=== PATIENT | male | born 1985 | race Caucasian/White ===

== ENCOUNTER 2017-06-09 11:48 | Inpatient (IN) | payer OTHER ==
[2017-06-09] MEDS ORDERED: Lidocaine 1% 20 ML MDV INJECT ONE (14:37)
[2017-06-09] MEDS ORDERED: Morphine 4 MG/ML Syringe IVPUSH ONE (14:49)
[2017-06-09 14:53] LABS: CHLORIDE,CL 103 mmol/L (98-107); SODIUM,NA 140 mmol/L (136-148)
--- NOTE | 2017-06-09 15:30 | EDM.PDOC ---
ED HPI GENERAL MEDICAL PROBLEM - General Chief Complaint: Skin Complaint Stated Complaint: PER PT, HE HAS A GROWTH ON HIS INNER TIGHT Time Seen by Provider: 06/09/17 15:26 Source of Information: Reports: Patient - History of Present Illness INITIAL COMMENTS - FREE TEXT/NARRATIVE: HISTORY AND PHYSICAL: History of present illness: [Patient is an obese male who presents with cellulitis and indurated region on his left inguinal area appearing to arise from an ingrown hair, he has MRSA history and frequent abscess formation he generally drains on his own at home He is had some intermittent chills and sweats however at current no fever nausea vomiting chills sweats no chest pain shortness breath headache dizziness palpitation no bowel or urine symptoms He has a large 30 cm cellulitis on his left inner thigh antibiotics depending up the inguinal fold and anterior thigh 30 cm x 20 cm There is an area of induration with some fluctuance to it proximally 10 cm x 6 cm, this had drained on its own 2 days prior, I did open the lesion where it had drained and approximately a tablespoon of loculated and cottage cheese type material did come from the lesion a wound culture was obtained. I did cleanse and explored the wound I did not find any further areas of loculated ablation or liquid exudates ] Review of systems: As per history of present illness and below otherwise all systems reviewed and negative. Past medical history: As per history of present illness and as reviewed below otherwise noncontributory. Surgical history: As per history of present illness and as reviewed below otherwise noncontributory. Social history: No reported history of drug or alcohol abuse. Family history: As per history of present illness and as reviewed below otherwise noncontributory. Physical exam: HEENT: Atraumatic, normocephalic, pupils reactive, negative for conjunctival pallor or scleral icterus, mucous membranes moist, throat clear, neck supple, nontender, trachea midline. Lungs: Clear to auscultation, breath sounds equal bilaterally, chest nontender. Heart: S1S2, regular, negative for clicks, rubs, or JVD. Abdomen: Soft, nondistended, nontender. Negative for masses or hepatosplenomegaly. Negative for costovertebral tenderness. Pelvis: Stable nontender. Genitourinary: Deferred. Rectal: Deferred. Extremities: Atraumatic, negative for cords or calf pain. Neurovascular unremarkable. Neuro: Awake, alert, oriented. Cranial nerves II through XII unremarkable. Cerebellum unremarkable. Motor and sensory unremarkable throughout. Exam nonfocal. Skin as per history of present illness otherwise unremarkable Diagnostics: [Wound culture obtained CBC CMP UA blood cultures 2 ] Therapeutics: [IND performed as above Lidocaine 5 mL Vancomycin 1 g IV Cleocin 300 mg IV Morphine 2 mg IV ] Impression: [ abscess post I&D Cellulitis MRSA history ] Definitive disposition and diagnosis as appropriate pending reevaluation and review of above. abcess to L thigh Pain Score (Numeric/FACES): 0 - Related Data Allergies Allergy/AdvReac Type Severity Reaction Status Date / Time No Known Allergies Allergy Verified 06/09/17 12:26 Home Meds: Home Meds . [No Known Home Meds] 06/09/17 [History] Past Medical History Dermatologic History: Reports: Other (See Below) Other Dermatologic History: Acne - Infectious Disease History Infectious Disease History: Reports: Chicken Pox - Past Surgical History Musculoskeletal Surgical History: Reports: Other (See Below) Other Musculoskeletal Surgeries/Procedures:: Left Ankle x2 Social & Family History - Family History Family Medical History: Noncontributory Endocrine/Metabolic: Reports: Diabetes, Type I - Tobacco Use Smoking Status *Q: Current Every Day Smoker Years of Tobacco use: 10 Packs/Tins Daily: 0.5 - Caffeine Use Caffeine Use: Reports: Energy Drinks, Soda - Recreational Drug Use Recreational Drug Use: No ED ROS GENERAL - Review of Systems Review Of Systems: ROS reveals no pertinent complaints other than HPI. ED EXAM, SKIN/RASH Exam: See Below Course - Vital Signs Last Recorded V/S: Last Vital Signs Temp 97.6 F 06/09/17 12:22 Pulse 96 06/09/17 12:22 Resp 18 06/09/17 12:22 BP 132/60 06/09/17 12:22 Pulse Ox 96 06/09/17 12:22 - Orders/Labs/Meds Orders: Active Orders 24 hr Category Date Time Status CULTURE BLOOD [BC] Stat Lab 06/09/17 14:15 Received CULTURE BLOOD [BC] Stat Lab 06/09/17 14:26 Received CULTURE WOUND [RM] Stat Lab 06/09/17 15:37 Ordered UA W/MICROSCOPIC [URIN] Stat Lab 06/09/17 14:14 Ordered Clindamycin Phosphate [Cleocin] 300 mg Med 06/09/17 15:26 Active Sodium Chloride 0.9% [Normal Saline] 50 ml IV ONETIME Vancomycin [Vancocin] 1 gm Med 06/09/17 15:18 Active Sodium Chloride 0.9% [Normal Saline] 250 ml IV ONETIME Blood Culture x2 Reflex Set [OM.PC] Stat Oth 06/09/17 14:05 Ordered Medication Orders Vancomycin HCl 1 gm/ Sodium (Chloride) 250 mls @ 250 mls/hr IV ONETIME ONE Stop: 06/09/17 16:17 Clindamycin Phosphate 300 mg/ (Sodium Chloride) 52 mls @ 100 mls/hr IV ONETIME ONE Stop: 06/09/17 15:57 Labs: Laboratory Tests 06/09/17 06/09/17 06/09/17 Range/Units 14:14 14:15 14:15 WBC 16.77 H (4.0-11.0) K/uL RBC 4.72 (4.50-5.90) M/uL Hgb 13.2 (13.0-17.0) g/dL Hct 39.8 (38.0-50.0) % MCV 84.3 (80.0-98.0) fL MCH 28.0 (27.0-32.0) pg MCHC 33.2 (31.0-37.0) g/dL RDW Std Deviation 42.7 (28.0-62.0) fl RDW Coeff of Meli 14 (11.0-15.0) % Plt Count 247 (150-400) K/uL MPV 10.30 (7.40-12.00) fL Neut % (Auto) 75.8 (48.0-80.0) % Lymph % (Auto) 16.7 (16.0-40.0) % [place] % (Auto) 7.0 (0.0-15.0) % Eos % (Auto) 0.4 (0.0-7.0) % Baso % (Auto) 0.1 (0.0-1.5) % Neut # (Auto) 12.7 H (1.4-5.7) K/uL Lymph # (Auto) 2.8 H (0.6-2.4) K/uL [place] # (Auto) 1.2 H (0.0-0.8) K/uL Eos # (Auto) 0.1 (0.0-0.7) K/uL Baso # (Auto) 0.0 (0.0-0.1) K/uL Nucleated RBC % 0.0 /100WBC Nucleated RBCs # 0 K/uL Sodium 140 (136-148) mmol/L Potassium 3.5 (3.5-5.1) mmol/L Chloride 103 (98-107) mmol/L Carbon Dioxide 26.5 (21.0-32.0) mmol/L BUN 10 (7.0-18.0) mg/dL Creatinine 1.1 (0.8-1.3) mg/dL Est Cr Clr Drug Dosing TNP Estimated GFR (MDRD) > 60.0 ml/min Glucose 96 (74-106) mg/dL Calcium 9.0 (8.5-10.1) mg/dL Total Bilirubin 1.0 (0.2-1.0) mg/dL AST 26 (15-37) IU/L ALT 65 H (14-63) IU/L Alkaline Phosphatase 73 (46-116) U/L Total Protein 8.4 H (6.4-8.2) g/dL Albumin 3.7 (3.4-5.0) g/dL Globulin 4.7 H (2.0-3.5) g/dL Albumin/Globulin Ratio 0.8 L (1.3-2.8) Urine Color YELLOW Urine Appearance CLEAR Urine pH 6.0 (5.0-8.0) Ur Specific [place] >= 1.030 (1.001-1.035) Urine Protein 30 (NEGATIVE) mg/dL Urine Glucose (UA) NEGATIVE (NEGATIVE) mg/dL Urine Ketones NEGATIVE (NEGATIVE) mg/dL Urine Occult Blood LARGE H (NEGATIVE) Urine Nitrite NEGATIVE (NEGATIVE) Urine Bilirubin NEGATIVE (NEGATIVE) Urine Urobilinogen 0.2 (<2.0) EU/dL Ur Leukocyte Esterase NEGATIVE (NEGATIVE) Urine RBC 8-10 (0-2/HPF) Urine WBC 0-1 (0-5/HPF) Ur Epithelial Cells FEW (NONE-FEW) Urine Bacteria FEW (NEGATIVE) Meds: Medications Generic Name Dose Route Start Last Admin Trade Name Freq PRN Reason Stop Dose Admin Vancomycin HCl 1 gm/ Sodium 250 mls @ 250 mls/hr 06/09/17 15:18 Chloride IV 06/09/17 16:17 ONETIME ONE Clindamycin Phosphate 300 mg/ 52 mls @ 100 mls/hr 06/09/17 15:26 Sodium Chloride IV 06/09/17 15:57 ONETIME ONE Discontinued Medications Generic Name Dose Route Start Last Admin Trade Name Dusty PRN Reason Stop Dose Admin Lidocaine HCl 20 ml 06/09/17 14:37 06/09/17 14:50 Xylocaine 1% INJECT 06/09/17 14:38 20 ml ONETIME ONE Administration Morphine Sulfate 2 mg 06/09/17 14:49 06/09/17 14:52 Morphine IVPUSH 06/09/17 14:50 2 mg ONETIME ONE Administration Departure - Departure Time of Disposition: 15:41 Disposition: Admitted As Inpatient 67 Condition: Fair Clinical Impression: Cellulitis and abscess of left leg - Discharge Information Referrals: PCP,None [Primary Care Provider] - Forms: ED Department Discharge - My Orders Last 24 Hours: My Active Orders 06/09/17 14:05 Blood Culture x2 Reflex Set [OM.PC] Stat 06/09/17 14:14 UA W/MICROSCOPIC [URIN] Stat 06/09/17 14:15 CULTURE BLOOD [BC] Stat 06/09/17 14:26 CULTURE BLOOD [BC] Stat 06/09/17 15:18 Vancomycin [Vancocin] 1 gm Sodium Chloride 0.9% [Normal Saline] 250 ml IV ONETIME 06/09/17 15:26 Clindamycin Phosphate [Cleocin] 300 mg Sodium Chloride 0.9% [Normal Saline] 50 ml IV ONETIME 06/09/17 15:37 CULTURE WOUND [RM] Stat - Assessment/Plan Last 24 Hours: My Active Orders 06/09/17 14:05 Blood Culture x2 Reflex Set [OM.PC] Stat 06/09/17 14:14 UA W/MICROSCOPIC [URIN] Stat 06/09/17 14:15 CULTURE BLOOD [BC] Stat 06/09/17 14:26 CULTURE BLOOD [BC] Stat 06/09/17 15:18 Vancomycin [Vancocin] 1 gm Sodium Chloride 0.9% [Normal Saline] 250 ml IV ONETIME 06/09/17 15:26 Clindamycin Phosphate [Cleocin] 300 mg Sodium Chloride 0.9% [Normal Saline] 50 ml IV ONETIME 06/09/17 15:37 CULTURE WOUND [RM] Stat
--- NOTE | 2017-06-09 16:27 | PCM.HP ---
H&P History of Present Illness - General Date of Service: 06/09/17 Admit Problem/Dx: Admission Diagnosis/Problem Admission Diagnosis/Problem Cellulitis with abscess to L thigh Source of Information: Patient History Limitations: Reports: No Limitations - History of Present Illness Initial Comments - Free Text/Narative: This 31 year old male with pmh significant for pustules to abdominal folds, groin and back presented to the ED with concerns of an infection to his L thigh , groin region. He reports this start slowly end of last week and has progressed over the weekend. It initially did drain a small amount of purulent drainage and then it closed up and became more painful, swollen and red. He reports pain 4-5/10 currently sharp burning sensation, which is after I&D in ED. Reports the worst pain is when he is up ambulating and it is stretching and pulling. He reports subjective fevers and chills last night on the train ride home. Denies known history of MRSA. No cough, chest pain, SOB or palpitations. He denies abdominal pain. No other areas of redness or pain to his skin. Reports he smokes 1/2 ppd or cigarettes or uses 1/2 tin of chewing tobacco when not smoking. He denies alcohol or recreational drug use. In the ED labwork significant for leukocytosis 16,770 BMP WNL, AST 26 and ALT 65. UA negative. VS WNL. He was treated with Vancomycin and analgesia. Wound culture with I&D and blood cultures obtained as well. Wound packed and dressed in the ED. abcess to L thigh Pain Score (Numeric/FACES): 0 - Related Data Allergies/Adverse Reactions: Allergies Allergy/AdvReac Type Severity Reaction Status Date / Time No Known Allergies Allergy Verified 06/09/17 12:26 Home Medications: Home Meds . [No Known Home Meds] 06/09/17 [History] Past Medical History Cardiovascular History: Reports: None. Denies: CAD, High Cholesterol, Hypertension, NC Respiratory History: Reports: None. Denies: Asthma, COPD Gastrointestinal History: Reports: None Genitourinary History: Reports: None. Denies: Chronic Renal Insuffiency Musculoskeletal History: Reports: None Psychiatric History: Reports: None Endocrine/Metabolic History: Reports: Obesity/BMI 30+. Denies: Diabetes, Type II, Hypothyroidism Dermatologic History: Reports: Cellulitis (and pustules, was once treated with Accutane.), Other (See Below) Other Dermatologic History: Acne - Infectious Disease History Infectious Disease History: Reports: Chicken Pox - Past Surgical History Musculoskeletal Surgical History: Reports: Other (See Below) Other Musculoskeletal Surgeries/Procedures:: Left Ankle x2 Social & Family History - Family History Family Medical History: Noncontributory Endocrine/Metabolic: Reports: Diabetes, Type I - Tobacco Use Smoking Status *Q: Current Every Day Smoker Tobacco Use Within Last Twelve Months: Cigarettes, Smokeless Tobacco Years of Tobacco use: 10 Packs/Tins Daily: 0.5 - Caffeine Use Caffeine Use: Reports: Energy Drinks, Soda - Alcohol Use Alcohol Use History: No - Recreational Drug Use Recreational Drug Use: No - Living Situation & Occupation Living situation: Reports: Occupation: Employed H&P Review of Systems - Review of Systems: Review Of Systems: See Below General: Reports: Fever, Chills, Malaise HEENT: Reports: No Symptoms. Denies: Headaches, Sinus Congestion, Sore Throat, Vertigo Pulmonary: Reports: No Symptoms. Denies: Shortness of Breath Cardiovascular: Reports: No Symptoms. Denies: Chest Pain Gastrointestinal: Reports: No Symptoms. Denies: Abdominal Pain, Black Stool, Bloody Stool, Nausea, Vomiting Genitourinary: Reports: No Symptoms. Denies: Dysuria, Frequency Musculoskeletal: Reports: No Symptoms Skin: Reports: Erythema (pustule, which drained slightly. redness and pain to L thigh.) Psychiatric: Reports: No Symptoms Neurological: Reports: No Symptoms Exam - Exam Exam: See Below - Vital Signs Vital Signs: Last Vital Signs Temp 98.2 F 06/09/17 16:08 Pulse 98 06/09/17 16:08 Resp 16 06/09/17 16:08 BP 133/80 06/09/17 16:08 Pulse Ox 97 06/09/17 16:08 Weight: 167.829 kg - Exam General: Alert, Oriented, Cooperative HEENT: Conjunctiva Clear, Mucosa Moist & [place], Pupils Reactive Lungs: Clear to Auscultation, Normal Respiratory Effort Cardiovascular: Regular Rate, Regular Rhythm GI/Abdominal Exam: Normal Bowel Sounds, Soft, Non-Tender, No Organomegaly, No Distention, No Abnormal Bruit, No Mass, Pelvis Stable Extremities: Normal Inspection, Normal Range of Motion, Non-Tender, No Pedal Edema, Normal Capillary Refill Skin: Incision (I&D just completed, packing in place to L thigh abscess. Bleeding noted. Induration surrounding I&D site approximately 2-3 in with cellulitis which spreads distally from groin to mid thigh. No involvement to scrotum. Exquistely tender to palpation. ) Neuro Extensive - Mental Status: Alert, Oriented x3, Normal Mood/Affect, Normal Cognition Neuro Extensive - Motor, Sensory, Reflexes: CN II-XII Intact Psychiatric: Alert, Normal Affect, Normal Mood - Patient Data Lab Results Last 24 hrs: Laboratory Results - last 24 hr 06/09/17 06/09/17 06/09/17 Range/Units 14:14 14:15 14:15 WBC 16.77 H (4.0-11.0) K/uL RBC 4.72 (4.50-5.90) M/uL Hgb 13.2 (13.0-17.0) g/dL Hct 39.8 (38.0-50.0) % MCV 84.3 (80.0-98.0) fL MCH 28.0 (27.0-32.0) pg MCHC 33.2 (31.0-37.0) g/dL RDW Std Deviation 42.7 (28.0-62.0) fl RDW Coeff of Meli 14 (11.0-15.0) % Plt Count 247 (150-400) K/uL MPV 10.30 (7.40-12.00) fL Neut % (Auto) 75.8 (48.0-80.0) % Lymph % (Auto) 16.7 (16.0-40.0) % [place] % (Auto) 7.0 (0.0-15.0) % Eos % (Auto) 0.4 (0.0-7.0) % Baso % (Auto) 0.1 (0.0-1.5) % Neut # (Auto) 12.7 H (1.4-5.7) K/uL Lymph # (Auto) 2.8 H (0.6-2.4) K/uL [place] # (Auto) 1.2 H (0.0-0.8) K/uL Eos # (Auto) 0.1 (0.0-0.7) K/uL Baso # (Auto) 0.0 (0.0-0.1) K/uL Nucleated RBC % 0.0 /100WBC Nucleated RBCs # 0 K/uL Sodium 140 (136-148) mmol/L Potassium 3.5 (3.5-5.1) mmol/L Chloride 103 (98-107) mmol/L Carbon Dioxide 26.5 (21.0-32.0) mmol/L BUN 10 (7.0-18.0) mg/dL Creatinine 1.1 (0.8-1.3) mg/dL Est Cr Clr Drug Dosing TNP Estimated GFR (MDRD) > 60.0 ml/min Glucose 96 (74-106) mg/dL Calcium 9.0 (8.5-10.1) mg/dL Total Bilirubin 1.0 (0.2-1.0) mg/dL AST 26 (15-37) IU/L ALT 65 H (14-63) IU/L Alkaline Phosphatase 73 (46-116) U/L Total Protein 8.4 H (6.4-8.2) g/dL Albumin 3.7 (3.4-5.0) g/dL Globulin 4.7 H (2.0-3.5) g/dL Albumin/Globulin Ratio 0.8 L (1.3-2.8) Urine Color YELLOW Urine Appearance CLEAR Urine pH 6.0 (5.0-8.0) Ur Specific [place] >= 1.030 (1.001-1.035) Urine Protein 30 (NEGATIVE) mg/dL Urine Glucose (UA) NEGATIVE (NEGATIVE) mg/dL Urine Ketones NEGATIVE (NEGATIVE) mg/dL Urine Occult Blood LARGE H (NEGATIVE) Urine Nitrite NEGATIVE (NEGATIVE) Urine Bilirubin NEGATIVE (NEGATIVE) Urine Urobilinogen 0.2 (<2.0) EU/dL Ur Leukocyte Esterase NEGATIVE (NEGATIVE) Urine RBC 8-10 (0-2/HPF) Urine WBC 0-1 (0-5/HPF) Ur Epithelial Cells FEW (NONE-FEW) Urine Bacteria FEW (NEGATIVE) Result Diagrams: 06/09/17 14:15 06/09/17 14:15 *Q Meaningful Use (ADM) - VTE Risk Assess *Q Each Risk Factor Represents 1 Point: None Total Score 1 Point Risk Factors: 0 Each Risk Factor Represents 2 Points: None Total Score 2 Point Risk Factors: 0 Each Risk Factor Represents 3 Points: None Total Score 3 Point Risk Factors: 0 Each Risk Factor Represents 5 Points: None Total Score 5 Point Risk Factors: 0 Venous Thromboembolism Risk Factor Score *Q: 0 - Problem List (1) Cellulitis and abscess of left leg SNOMED Code(s): 343231213 ICD Code: L03.116 - CELLULITIS OF LEFT LOWER LIMB; L02.416 - CUTANEOUS ABSCESS OF LEFT LOWER LIMB Status: Acute Current Visit: Yes (2) Obesity SNOMED Code(s): 198330450, 136113171 ICD Code: E66.9 - OBESITY, UNSPECIFIED Status: Chronic Current Visit: Yes Problem List Initiated/Reviewed/Updated: Yes Orders Last 24hrs: Active Orders 24 hr Category Date Time Status Admission Status [Patient Status] [ADT] Stat ADT 06/09/17 15:42 Active CULTURE BLOOD [BC] Stat Lab 06/09/17 14:15 Received CULTURE BLOOD [BC] Stat Lab 06/09/17 14:26 Received CULTURE WOUND [RM] Stat Lab 06/09/17 15:12 Received UA W/MICROSCOPIC [URIN] Stat Lab 06/09/17 14:14 Ordered Blood Culture x2 Reflex Set [OM.PC] Stat Oth 06/09/17 14:05 Ordered Assessment/Plan Comment:: This 31 year old male admitted for cellulitis and abscess of L thigh 1. Cellulitis and abscess of L thigh: I&D completed in ED, Wound culture and BC obtained in ED and pending. Will treat with Vancomycin. Analgesia as needed. Keep wound packing in place. MRSA/contact precautions. Patient denies known history of this. Monitor labwork in am. Keep L extremity elevated. VTE prophylaxis: SCDs and ambulation Dispo: 2-3 days pending improvement.
[2017-06-09] MEDS ORDERED: Morphine 4 MG/ML Syringe IVPUSH PRN (16:37)
[2017-06-09] MEDS ORDERED: Acetaminophen 325 MG Tab PO PRN (16:37)
[2017-06-09] MEDS ORDERED: Sodium Chloride 0.9% 2.5 ML Syringe FLUSH PRN (16:37)
[2017-06-09] MEDS ORDERED: Ondansetron 4 MG/2 ML SDV IVPUSH PRN (16:37)
[2017-06-10] MEDS: oxyCODONE 5 MG Tab PO PRN ×2 (04:30→20:34)
[2017-06-10 06:58] LABS: CHLORIDE,CL 103 mmol/L (98-107); SODIUM,NA 138 mmol/L (136-148)
--- NOTE | 2017-06-10 07:49 | PCM.PN ---
- General Info Date of Service: 06/10/17 Admission Dx/Problem (Free Text): Admission Diagnosis/Problem Admission Diagnosis/Problem Cellulitis with abscess to L thigh Subjective Update: Feeling a little better today. Using Oxycodone for pain, which is helping. No chest pain, SOB or abdominal pain. Functional Status: Reports: Pain Controlled, Tolerating Diet, Ambulating, Urinating - Review of Systems General: Reports: Fever (had fever and chills overnight. none this morning. ) HEENT: Reports: No Symptoms. Denies: Headaches, Sore Throat, Rhinitis Pulmonary: Reports: No Symptoms. Denies: Shortness of Breath, Cough, Sputum Cardiovascular: Reports: No Symptoms. Denies: Chest Pain, Edema Gastrointestinal: Reports: No Symptoms. Denies: Abdominal Pain, Nausea, Vomiting Musculoskeletal: Reports: No Symptoms. Denies: Neck Pain Skin: Reports: Other (wound, improving. Pain and redness slight improvement.) Neurological: Reports: No Symptoms Psychiatric: Reports: No Symptoms - Patient Data Vitals - Most Recent: Last Vital Signs Temp 101.8 F H 06/10/17 05:00 Pulse 88 06/10/17 05:00 Resp 20 06/10/17 05:00 BP 121/67 06/10/17 05:00 Pulse Ox 97 06/10/17 05:00 Weight - Most Recent: 167.829 kg I&O - Last 24 Hours: Intake & Output 06/09/17 06/10/17 06/10/17 22:59 06:59 14:59 Intake Total 520 1420 Output Total 1100 Balance 520 320 Lab Results Last 24 Hours: Laboratory Results - last 24 hr 06/09/17 06/09/17 06/09/17 Range/Units 14:14 14:15 14:15 WBC 16.77 H (4.0-11.0) K/uL RBC 4.72 (4.50-5.90) M/uL Hgb 13.2 (13.0-17.0) g/dL Hct 39.8 (38.0-50.0) % MCV 84.3 (80.0-98.0) fL MCH 28.0 (27.0-32.0) pg MCHC 33.2 (31.0-37.0) g/dL RDW Std Deviation 42.7 (28.0-62.0) fl RDW Coeff of Meli 14 (11.0-15.0) % Plt Count 247 (150-400) K/uL MPV 10.30 (7.40-12.00) fL Neut % (Auto) 75.8 (48.0-80.0) % Lymph % (Auto) 16.7 (16.0-40.0) % [place] % (Auto) 7.0 (0.0-15.0) % Eos % (Auto) 0.4 (0.0-7.0) % Baso % (Auto) 0.1 (0.0-1.5) % Neut # (Auto) 12.7 H (1.4-5.7) K/uL Lymph # (Auto) 2.8 H (0.6-2.4) K/uL [place] # (Auto) 1.2 H (0.0-0.8) K/uL Eos # (Auto) 0.1 (0.0-0.7) K/uL Baso # (Auto) 0.0 (0.0-0.1) K/uL Nucleated RBC % 0.0 /100WBC Nucleated RBCs # 0 K/uL Sodium 140 (136-148) mmol/L Potassium 3.5 (3.5-5.1) mmol/L Chloride 103 (98-107) mmol/L Carbon Dioxide 26.5 (21.0-32.0) mmol/L BUN 10 (7.0-18.0) mg/dL Creatinine 1.1 (0.8-1.3) mg/dL Est Cr Clr Drug Dosing TNP Estimated GFR (MDRD) > 60.0 ml/min Glucose 96 (74-106) mg/dL Calcium 9.0 (8.5-10.1) mg/dL Total Bilirubin 1.0 (0.2-1.0) mg/dL AST 26 (15-37) IU/L ALT 65 H (14-63) IU/L Alkaline Phosphatase 73 (46-116) U/L Total Protein 8.4 H (6.4-8.2) g/dL Albumin 3.7 (3.4-5.0) g/dL Globulin 4.7 H (2.0-3.5) g/dL Albumin/Globulin Ratio 0.8 L (1.3-2.8) Urine Color YELLOW Urine Appearance CLEAR Urine pH 6.0 (5.0-8.0) Ur Specific [place] >= 1.030 (1.001-1.035) Urine Protein 30 (NEGATIVE) mg/dL Urine Glucose (UA) NEGATIVE (NEGATIVE) mg/dL Urine Ketones NEGATIVE (NEGATIVE) mg/dL Urine Occult Blood LARGE H (NEGATIVE) Urine Nitrite NEGATIVE (NEGATIVE) Urine Bilirubin NEGATIVE (NEGATIVE) Urine Urobilinogen 0.2 (<2.0) EU/dL Ur Leukocyte Esterase NEGATIVE (NEGATIVE) Urine RBC 8-10 (0-2/HPF) Urine WBC 0-1 (0-5/HPF) Ur Epithelial Cells FEW (NONE-FEW) Urine Bacteria FEW (NEGATIVE) 06/10/17 06/10/17 Range/Units 06:25 06:25 WBC 14.36 H (4.0-11.0) K/uL RBC 4.24 L (4.50-5.90) M/uL Hgb 11.8 L (13.0-17.0) g/dL Hct 35.9 L (38.0-50.0) % MCV 84.7 (80.0-98.0) fL MCH 27.8 (27.0-32.0) pg MCHC 32.9 (31.0-37.0) g/dL RDW Std Deviation 43.4 (28.0-62.0) fl RDW Coeff of Meli 14 (11.0-15.0) % Plt Count 242 (150-400) K/uL MPV 10.30 (7.40-12.00) fL Neut % (Auto) 79.5 (48.0-80.0) % Lymph % (Auto) 13.2 L (16.0-40.0) % [place] % (Auto) 6.8 (0.0-15.0) % Eos % (Auto) 0.5 (0.0-7.0) % Baso % (Auto) 0.0 (0.0-1.5) % Neut # (Auto) 11.4 H (1.4-5.7) K/uL Lymph # (Auto) 1.9 (0.6-2.4) K/uL [place] # (Auto) 1.0 H (0.0-0.8) K/uL Eos # (Auto) 0.1 (0.0-0.7) K/uL Baso # (Auto) 0.0 (0.0-0.1) K/uL Nucleated RBC % 0.0 /100WBC Nucleated RBCs # 0 K/uL Sodium 138 (136-148) mmol/L Potassium 3.4 L (3.5-5.1) mmol/L Chloride 103 (98-107) mmol/L Carbon Dioxide 25.9 (21.0-32.0) mmol/L BUN 7 (7.0-18.0) mg/dL Creatinine 1.0 (0.8-1.3) mg/dL Est Cr Clr Drug Dosing 122.07 Estimated GFR (MDRD) > 60.0 ml/min Glucose 127 H (74-106) mg/dL Calcium 8.3 L (8.5-10.1) mg/dL Total Bilirubin 0.9 (0.2-1.0) mg/dL AST 27 (15-37) IU/L ALT 66 H (14-63) IU/L Alkaline Phosphatase 66 (46-116) U/L Total Protein 7.5 (6.4-8.2) g/dL Albumin 3.0 L (3.4-5.0) g/dL Globulin 4.5 H (2.0-3.5) g/dL Albumin/Globulin Ratio 0.7 L (1.3-2.8) Urine Color Urine Appearance Urine pH (5.0-8.0) Ur Specific [place] (1.001-1.035) Urine Protein (NEGATIVE) mg/dL Urine Glucose (UA) (NEGATIVE) mg/dL Urine Ketones (NEGATIVE) mg/dL Urine Occult Blood (NEGATIVE) Urine Nitrite (NEGATIVE) Urine Bilirubin (NEGATIVE) Urine Urobilinogen (<2.0) EU/dL Ur Leukocyte Esterase (NEGATIVE) Urine RBC (0-2/HPF) Urine WBC (0-5/HPF) Ur Epithelial Cells (NONE-FEW) Urine Bacteria (NEGATIVE) Med Orders - Current: Current Medications Acetaminophen (Tylenol) 650 mg PO Q4H PRN PRN Reason: Pain (Mild 1-3)/fever Last Admin: 06/09/17 18:42 Dose: 650 mg Vancomycin HCl 1,500 mg/ (Sodium Chloride) 500 mls @ 250 mls/hr IV Q8H [facility] Last Admin: 06/10/17 02:26 Dose: 250 mls/hr Morphine Sulfate (Morphine) 4 mg IVPUSH Q4H PRN PRN Reason: severe pain Ondansetron HCl (Zofran) 4 mg IVPUSH Q4H PRN PRN Reason: Nausea Oxycodone HCl (Oxycodone) 5 - 10 mg PO Q4H PRN PRN Reason: Pain Last Admin: 06/10/17 04:30 Dose: 10 mg Sodium Chloride (Saline Flush) 2.5 ml FLUSH ASDIRECTED PRN PRN Reason: Keep Vein Open Vancomycin HCl (Pharmacy To Dose - Vancomycin) 1 dose .XX ASDIRECTED ANJELICA Discontinued Medications Vancomycin HCl 1 gm/ Sodium (Chloride) 250 mls @ 250 mls/hr IV ONETIME ONE Stop: 06/09/17 16:17 Last Admin: 06/09/17 15:56 Dose: 250 mls/hr Clindamycin Phosphate 300 mg/ (Sodium Chloride) 52 mls @ 100 mls/hr IV ONETIME ONE Stop: 06/09/17 15:57 Last Admin: 06/09/17 17:34 Dose: Not Given Lidocaine HCl (Xylocaine 1%) 20 ml INJECT ONETIME ONE Stop: 06/09/17 14:38 Last Admin: 06/09/17 14:50 Dose: 20 ml Morphine Sulfate (Morphine) 2 mg IVPUSH ONETIME ONE Stop: 06/09/17 14:50 Last Admin: 06/09/17 14:52 Dose: 2 mg - Exam General: Alert, Oriented, Cooperative, No Acute Distress Neck: Supple Lungs: Clear to Auscultation, Normal Respiratory Effort Cardiovascular: Regular Rate, Regular Rhythm GI/Abdominal Exam: Normal Bowel Sounds, Soft, Non-Tender, No Organomegaly, No Distention, No Abnormal Bruit, No Mass, Pelvis Stable Extremities: Normal Inspection, Normal Range of Motion, Non-Tender, No Pedal Edema, Normal Capillary Refill Wound/Incisions: Erythema Improving (Erythema less bright red today. Continues to have large area of induration approximately 3 in x 5 in to left upper thigh, running next to groin. Packing remains in place with bloody drainage. No fluctuance noted. Exquisite tenderness to induration. ), Other (abdominal folds and groin folds clear, many old scars noted from previous pustules and boils.) Neurological: No New Focal Deficit Psy/Mental Status: Alert, Normal Affect, Normal Mood - Problem List & Annotations (1) Cellulitis and abscess of left leg SNOMED Code(s): 432346034 Code(s): L03.116 - CELLULITIS OF LEFT LOWER LIMB; L02.416 - CUTANEOUS ABSCESS OF LEFT LOWER LIMB Status: Acute Current Visit: Yes (2) Obesity SNOMED Code(s): 643325121, 255165500 Code(s): E66.9 - OBESITY, UNSPECIFIED Status: Chronic Current Visit: Yes - Problem List Review Problem List Initiated/Reviewed/Updated: Yes - My Orders Last 24 Hours: My Active Orders 06/09/17 16:36 oxyCODONE 5 - 10 mg PO Q4H PRN 06/09/17 16:37 Intake and Output [RC] Q12H May Shower [RC] ASDIRECTED Oxygen Therapy [RC] PRN Up ad Azra [RC] ASDIRECTED VTE/DVT Education [RC] PER UNIT ROUTINE Vital Signs [RC] Q4H Acetaminophen [Tylenol] 650 mg PO Q4H PRN Morphine 4 mg IVPUSH Q4H PRN Ondansetron [Zofran] 4 mg IVPUSH Q4H PRN Sodium Chloride 0.9% [Saline Flush] 2.5 ml FLUSH ASDIRECTED PRN Saline Lock Insert [OM.PC] Routine Resuscitation Status Routine 06/09/17 16:38 Sequential Compression Device [OM.PC] Per Unit Routine 06/09/17 16:39 Wound Care [RC] Q12H 06/09/17 16:41 Elevate Extremity [RC] BID 06/09/17 16:45 Vancomycin Pharmacy to Dose [Pharmacy to Dose - Vancomycin] 1 dose .XX ASDIRECTED 06/09/17 16:46 Precautions [COMM] Routine 06/09/17 Dinner Regular Diet [DIET] 06/11/17 05:11 CBC WITH AUTO DIFF [HEME] AM COMPREHENSIVE METABOLIC PN,CMP [CHEM] AM 06/12/17 05:11 CBC WITH AUTO DIFF [HEME] AM COMPREHENSIVE METABOLIC PN,CMP [CHEM] AM - Plan Plan:: This 31 year old male admitted for cellulitis and abscess of L thigh 1. Cellulitis and abscess of L thigh: Improving. I&D completed in ED, Wound culture and BC pending. Continue Vancomycin. Analgesia as needed. MRSA/contact precautions. Patient denies known history of this. Leukocytosis improved. Keep L extremity elevated. Encouraged to shower today, may cover wound. VTE prophylaxis: SCDs and ambulation Dispo: 2-3 days pending improvement.
[2017-06-10] MEDS: Vancomycin 2 GM in Sodium Chloride 0.9% 500 ML IV SCH (20:33)
[2017-06-11] MEDS: Vancomycin 2 GM in Sodium Chloride 0.9% 500 ML IV SCH (03:12)
[2017-06-11 06:34] LABS: CHLORIDE,CL 105 mmol/L (98-107); SODIUM,NA 140 mmol/L (136-148)
--- NOTE | 2017-06-11 11:33 | PCM.DCSUM1 ---
Discharge Summary - Hospital Course Brief History: This 31 year old male with pmh significant for pustules to abdominal folds, groin and back presented to the ED with concerns of an infection to his L thigh, groin region. He reports this start slowly end of last week and has progressed over the weekend. It initially did drain a small amount of purulent drainage and then it closed up and became more painful, swollen and red. He reports pain 4-5/10 currently sharp burning sensation, which is after I&D in ED. Reports the worst pain is when he is up ambulating and it is stretching and pulling. He reports subjective fevers and chills last night on the train ride home. Denies known history of MRSA. No cough, chest pain , SOB or palpitations. He denies abdominal pain. No other areas of redness or pain to his skin. Reports he smokes 1/2 ppd or cigarettes or uses 1/2 tin of chewing tobacco when not smoking. He denies alcohol or recreational drug use. In the ED labwork significant for leukocytosis 16,770 BMP WNL, AST 26 and ALT 65. UA negative. VS WNL. He was treated with Vancomycin and analgesia. Wound culture with I&D and blood cultures obtained as well. Wound packed and dressed in the ED. - Discharge Data Discharge Date: 06/11/17 Discharge Disposition: Home, Self-Care 01 Condition: Good - Discharge Diagnosis/Problem(s) (1) Cellulitis and abscess of left leg SNOMED Code(s): 894219445 ICD Code: L03.116 - CELLULITIS OF LEFT LOWER LIMB; L02.416 - CUTANEOUS ABSCESS OF LEFT LOWER LIMB Status: Acute (2) Obesity SNOMED Code(s): 957776673, 817787265 ICD Code: E66.9 - OBESITY, UNSPECIFIED Status: Chronic - Patient Instructions Diet: Regular Diet as Tolerated Activity: As Tolerated Showering/Bathing: May Shower (Shower daily.), No Tub Bathing/Swimming Wound/Incision Care: Change Dressing Daily (Remove packing and place new packing daily to L thigh incision, cover with dry gauze and ABD. ) Notify Provider of: Fever, Increased Pain, Swelling and Redness, Drainage - Discharge Plan Prescriptions/Med Rec: oxyCODONE 10 mg PO Q6HR PRN #15 tablet PRN Reason: Pain Amoxicillin/Potassium Clav [Augmentin 875-125 Tablet] 1 tab PO BID #16 tablet Sulfamethoxazole/Trimethoprim [Bactrim Ds Tablet] 1 tab PO BID #16 tablet Home Medications: Home Meds Amoxicillin/Potassium Clav [Augmentin 875-125 Tablet] 1 tab PO BID #16 tablet [Rx] Sulfamethoxazole/Trimethoprim [Bactrim Ds Tablet] 1 tab PO BID #16 tablet [Rx] oxyCODONE 10 mg PO Q6HR PRN #15 tablet 06/11/17 [Rx] Patient Handouts: Amoxicillin; Clavulanic Acid tablets, Oxycodone tablets or capsules, Cellulitis, Adult, [id number], Sulfamethoxazole; Trimethoprim, SMX- TMP tablets Referrals: [facility] [Outside] Mercy Cabezas PA [Physician Sheet Metal Apprentice] - 06/12/17 1:45 pm - Discharge Summary/Plan Comment DC Time >30 min.: No Discharge Summary/Plan Comment: Discharge Diagnoses: Cellulitis with abscess to L thigh Jose Gibbs was admitted and treated for cellulitis and abscess of L thigh. I&D was completed in the ED. Wound culture grew out skin misti. BC negative x 2 days. He was treated with IV Vancomycin and dressing changes. Surrounding cellulitis improved nicely during stay. Induration continues surround the I&D site, approximately 4 in x 2 in, with some tenderness noted. No fluctuance noted today. Packing changed today, no purulent drainage, only bloody drainage noted. Repacked. patient educated on packing and given instructions. He is to keep this wound clean, shower daily. No soaking or tub baths. He will have close follow up with PCP, to insure continued improvement. He verbalizes understanding to call PCP or come back to ED with fevers, worsening pain, worsening redness if prior to his appointment. He will be sent home on Bactrim DS and Augmentin both BID for 8 more days. he was also given Oxycodone 10 mg po every 4-6 hours as needed for pain, #15 tabs no refills. He again is to return to ED or clinic if concerns should arise. - General Info Date of Service: 06/11/17 Admission Dx/Problem (Free Text: Admission Diagnosis/Problem Admission Diagnosis/Problem Cellulitis with abscess to L thigh Subjective Update: Doing well today and is eager for discharge home. Pain continues but is improving, redness has improved a lot, some swelling continued around I&D site. No fevers, no chest pain or shortness of breath. Eating and ambulating well. Functional Status: Reports: Pain Controlled, Tolerating Diet, Ambulating, Urinating - Review of Systems HEENT: Reports: No Symptoms. Denies: Headaches, Sore Throat, Visual Changes Pulmonary: Reports: No Symptoms. Denies: Shortness of Breath Cardiovascular: Reports: No Symptoms. Denies: Chest Pain Gastrointestinal: Reports: No Symptoms. Denies: Abdominal Pain, Nausea, Vomiting Genitourinary: Reports: No Symptoms Skin: Reports: Other (abscess to L leg, improved. pain better as well as redness.) Neurological: Reports: No Symptoms Psychiatric: Reports: No Symptoms - Patient Data Vitals - Most Recent: Last Vital Signs Temp 98.1 F 06/11/17 08:00 Pulse 82 06/11/17 08:00 Resp 18 06/11/17 08:00 BP 118/75 06/11/17 08:00 Pulse Ox 98 06/11/17 08:00 Weight - Most Recent: 167.829 kg I&O - Last 24 hours: Intake & Output 06/10/17 06/11/17 06/11/17 22:59 06:59 14:59 Intake Total 1600 1100 Output Total 1125 1550 Balance 475 -450 Lab Results - Last 24 hrs: Laboratory Results - last 24 hr 06/10/17 06/11/17 06/11/17 Range/Units 17:45 05:15 05:15 WBC 10.69 (4.0-11.0) K/uL RBC 4.07 L (4.50-5.90) M/uL Hgb 11.3 L (13.0-17.0) g/dL Hct 34.7 L (38.0-50.0) % MCV 85.3 (80.0-98.0) fL MCH 27.8 (27.0-32.0) pg MCHC 32.6 (31.0-37.0) g/dL RDW Std Deviation 43.1 (28.0-62.0) fl RDW Coeff of Meli 14 (11.0-15.0) % Plt Count 272 (150-400) K/uL MPV 10.50 (7.40-12.00) fL Neut % (Auto) 70.0 (48.0-80.0) % Lymph % (Auto) 19.9 (16.0-40.0) % [place] % (Auto) 8.8 (0.0-15.0) % Eos % (Auto) 1.1 (0.0-7.0) % Baso % (Auto) 0.2 (0.0-1.5) % Neut # (Auto) 7.5 H (1.4-5.7) K/uL Lymph # (Auto) 2.1 (0.6-2.4) K/uL [place] # (Auto) 0.9 H (0.0-0.8) K/uL Eos # (Auto) 0.1 (0.0-0.7) K/uL Baso # (Auto) 0.0 (0.0-0.1) K/uL Nucleated RBC % 0.0 /100WBC Nucleated RBCs # 0 K/uL Sodium 140 (136-148) mmol/L Potassium 3.5 (3.5-5.1) mmol/L Chloride 105 (98-107) mmol/L Carbon Dioxide 27.2 (21.0-32.0) mmol/L BUN 7 (7.0-18.0) mg/dL Creatinine 1.0 (0.8-1.3) mg/dL Est Cr Clr Drug Dosing 122.07 mL/min Estimated GFR (MDRD) > 60.0 ml/min Glucose 109 H (74-106) mg/dL Calcium 8.6 (8.5-10.1) mg/dL Total Bilirubin 0.8 (0.2-1.0) mg/dL AST 33 (15-37) IU/L ALT 82 H (14-63) IU/L Alkaline Phosphatase 70 (46-116) U/L Total Protein 7.3 (6.4-8.2) g/dL Albumin 2.7 L (3.4-5.0) g/dL Globulin 4.6 H (2.0-3.5) g/dL Albumin/Globulin Ratio 0.6 L (1.3-2.8) Vancomycin Trough 6.0 (5.0-10.0) ug/mL ISAC Results - Last 24 hrs: Microbiology 06/09/17 15:12 Wound Culture - Final Thigh, Left Skin Misti 06/09/17 14:26 Aerobic Blood Culture - Preliminary Blood - Venous - Lab Draw NO GROWTH AFTER 1 DAY Anaerobic Blood Culture - Preliminary NO GROWTH AFTER 1 DAY 06/09/17 14:15 Aerobic Blood Culture - Preliminary Blood - Venous NO GROWTH AFTER 1 DAY Anaerobic Blood Culture - Preliminary NO GROWTH AFTER 1 DAY Med Orders - Current: Current Medications Acetaminophen (Tylenol) 650 mg PO Q4H PRN PRN Reason: Pain (Mild 1-3)/fever Last Admin: 06/09/17 18:42 Dose: 650 mg Vancomycin HCl 2 gm/ Sodium (Chloride) 500 mls @ 250 mls/hr IV Q8H ANJELICA Last Admin: 06/11/17 03:12 Dose: 250 mls/hr Morphine Sulfate (Morphine) 4 mg IVPUSH Q4H PRN PRN Reason: severe pain Ondansetron HCl (Zofran) 4 mg IVPUSH Q4H PRN PRN Reason: Nausea Oxycodone HCl (Oxycodone) 5 - 10 mg PO Q4H PRN PRN Reason: Pain Last Admin: 06/10/17 20:34 Dose: 5 mg Sodium Chloride (Saline Flush) 2.5 ml FLUSH ASDIRECTED PRN PRN Reason: Keep Vein Open Vancomycin HCl (Pharmacy To Dose - Vancomycin) 1 dose .XX ASDIRECTED ANJELICA Discontinued Medications Vancomycin HCl 1 gm/ Sodium (Chloride) 250 mls @ 250 mls/hr IV ONETIME ONE Stop: 06/09/17 16:17 Last Admin: 06/09/17 15:56 Dose: 250 mls/hr Clindamycin Phosphate 300 mg/ (Sodium Chloride) 52 mls @ 100 mls/hr IV ONETIME ONE Stop: 06/09/17 15:57 Last Admin: 06/09/17 17:34 Dose: Not Given Vancomycin HCl 1,500 mg/ (Sodium Chloride) 500 mls @ 250 mls/hr IV Q8H [facility] Last Admin: 06/10/17 20:07 Dose: Not Given Lidocaine HCl (Xylocaine 1%) 20 ml INJECT ONETIME ONE Stop: 06/09/17 14:38 Last Admin: 06/09/17 14:50 Dose: 20 ml Morphine Sulfate (Morphine) 2 mg IVPUSH ONETIME ONE Stop: 06/09/17 14:50 Last Admin: 06/09/17 14:52 Dose: 2 mg - Exam General: Reports: Alert, Oriented, Cooperative, No Acute Distress Neck: Reports: Supple Lungs: Reports: Clear to Auscultation, Normal Respiratory Effort Cardiovascular: Reports: Regular Rate, Regular Rhythm GI/Abdominal Exam: Normal Bowel Sounds, Soft, Non-Tender, No Organomegaly, No Distention, No Abnormal Bruit, No Mass, Pelvis Stable Back Exam: Reports: Normal Inspection, Full Range of Motion Extremities: Normal Inspection, Normal Range of Motion, Non-Tender, No Pedal Edema, Normal Capillary Refill Wound/Incisions: Reports: Erythema Improving (much improved. Continued induration smaller today, surrounding I&D site to inner L thigh/groin. No fluctuance noted and only bloody drainage with pressure and palpation. No necrotic tissue. ) Psy/Mental Status: Reports: Alert, Normal Affect, Normal Mood
== END 2017-06-11 13:00 | disposition home or self-care (01) | DRG 581 ==
LOC: MW.ED 11:48 → MW.MS 15:42 → MW.ED 16:20
PROVIDERS: ADMIT Internal Medicine; ATTEND Internal Medicine
PROC: 0Y960ZZ Drainage of Left Inguinal Region, Open Approach (ICD-10-PCS; principal; 2017-06-09)
DX: L03.116 Cellulitis of left lower limb (principal); L02.416 Cutaneous abscess of left lower limb; E66.9 Obesity, unspecified; F17.210 Nicotine dependence, cigarettes, uncomplicated
CPT/HCPCS: 36415; 80053; 80202; 81001; 85025; 87040; 87070; 96365; 96375; 99284-25; A9270-GY; J2270; J3370; J7040; J7050